=== PATIENT | female | born 1995 | race Caucasian/White ===

== ENCOUNTER 2025-02-28 09:43 | Emergency (ER) | payer OTHER, SELFPAY ==
[2025-02-28 09:44] VITALS: BP 156/100
[2025-02-28 10:09] LABS: HCG, Serum Qualitative Screen Negative
[2025-02-28 10:28] LABS: Alkaline Phosphatase 84 U/L (38-126); Blood Urea Nitrogen 8 mg/dl (7-17); Calcium 10.5 mg/dl (8.4-10.2); Carbon Dioxide 24 mmol/L (22-30); Chloride 105 mmol/L (98-107); Glucose 138 mg/dl (70-99); Potassium 3.5 mmol/L (3.5-5.1); Sodium 142 mmol/L (135-145); Total Protein 7.8 g/dl (6.3-8.2); eGFR > 60.00
[2025-02-28 10:29] LABS: ALT (SGPT) 18 U/L (0-35); AST (SGOT) 24 U/L (14-36); Albumin 4.7 g/dl (3.5-5.0); Lipase 28 U/L (23-300); Total Bilirubin 0.6 mg/dl (0.2-1.3)
--- NOTE | 2025-02-28 10:47 | ED.GENMED ---
History of Present Illness
General
Chief Complaint: Abdominal Pain
Source: patient
Exam Limitations: none
Time Seen by Provider: 02/28/25 10:33
History of Present Illness
History of Present Illness:
29-year-old female presents with sharp constant left upper quadrant abdominal pain that radiates to the back. She notes the pain is made worse with breathing. She denies shortness of breath or chest pain. There is no nausea or vomiting. She has
a history of IBS. Still at this she has been having loose stools. No fever. She drinks couple coffee a day and drinks alcohol socially. She denies any regular use of any NSAIDs. Denies any dark black tarry stools. No other complaints
Past History
Past History
ED Past Medical History: GERD (Gastritis/esophagitis) and Other (Chronic abdominal pain)
ED Past Surgical History: Orthopedic
Social History
Tobacco: Smoker
Alcohol: None
Personal: Single
Living: with family
Employment: Student
Family History
Family History: Other (Noncontributory)
Phy Exam
Physical Exam
Physical Exam:
General: Well-appearing female no acute respiratory distress
HEENT: Normocephalic atraumatic
Heart: Regular rate and rhythm
Lungs: Clear no wheeze
Abdomen is soft tender in the epigastric and left upper quadrants and mild to the left mid abdomen. No guarding rebound
Musculoskeletal exam: Left posterior chest wall slightly tender
Skin: warm, no rash
Course
Orders/Labs/Results
Orders:
Orders
02/28/25 09:48
Test Result ONCE
02/28/25 09:51
Complete Blood Count/With Diff Urgent
Comprehensive Metabolic Panel Urgent
HCG, Serum Qualitative Screen Urgent
Comment: Notify provider if positive test present
Lipase Urgent
02/28/25 10:40
Iohexol [Omnipaque] See Protocol PO NOW STA
02/28/25 10:41
CT Abd/pel W Iv And Oral Contr Urgent
Comment:
Reason For Exam: left sided abodminal pain
02/28/25 10:50
D-Dimer Urgent
Urinalysis Reflex To Culture Urgent
Date Specimen was Collected: 02/28/25
Time Specimen was Collected: 10:42
Urine Microscopic Reflex Cult Urgent
Urine Culture Urgent
CHANDU Source: U
Specimen Description:
Date Specimen was Collected: 02/28/25
Time Specimen was Collected: 10:42
Abnormal Lab Results
02/28/25 02/28/25
09:51 10:50
Plt Count 468 H 10^3/uL
(130-400)
Glucose 138 H mg/dl
(70-99)
Calcium 10.5 H mg/dl
(8.4-10.2)
Ur Occult Blood Reflex 2+ A
(Negative)
Leukocyte Esterase Rfl 2+ A
(Negative)
Urine Bacteria (Reflex) Moderate A
(Negative)
Urine Albumin (Reflex) 2+ A
(Neg - Trace)
02/28/25 09:51
02/28/25 09:51
Vital Signs
Initial and Last Documented VS:
Initial Vital Signs
Temp Pulse Resp BP Pulse Ox
98.0 F 120 16 156/100 100
02/28/25 09:44 02/28/25 09:44 02/28/25 09:44 02/28/25 09:44 02/28/25 09:44
Last Documented Vital Signs
Temp Pulse Resp BP Pulse Ox
97.6 F 86 20 136/71 99
02/28/25 12:22 02/28/25 12:22 02/28/25 12:22 02/28/25 12:22 02/28/25 12:22
MDM/Problems Addressed
Differential Diagnosis Includes:
Left abdominal pain pleuritic in nature. Consider gastritis versus pancreatitis versus PE versus renal colic versus constipation
Labs pending. D-dimer ordered. Order CT of abdomen with oral and IV contrast.
*Critical Care Note
Total Time (30-74mins, 75-104mins- exclusive of procedures): Not Applicable
Update Note
Update Note:
CT negative for acute finding labs reviewed without significant finding. D-dimer negative. Abdominal pain could be related to musculoskeletal pain versus gastritis. She will continue her PPI. Stable for discharge with GI follow-up
ED Attending Note
-
Portions of this chart may have been created with voice recognition software.� Occasional wrong word or��sound alike� substitutions may have occurred due to the inherent limitations of voice recognition software.
Discharge Plan
Departure
Patient Disposition: Home (Routine Discharge)
Date of Disposition: 02/28/25
Time of Disposition: 14:45
Patient with high blood pressure during this ER visit?: No
Discharge Problem:
Abdominal pain
Instructions: Abdominal Pain
Prescriptions:
No Action
No Current Medications
0
Referrals:
Coral Ba, [Active] -
Madhavi Chavis CRNP [Family Provider] -
Stand Alone Forms: Return to Work
Activity Restrictions/Additional Instructions:
Continue with your PPI. Use Tylenol for pain peer return if worse otherwise follow
Interventions
Interventions:
*Risk Screen - Suicide Last Done: 02/28/25 09:44
*General Assessment Last Done: 02/28/25 09:44
*Neglect/Abuse Screening Last Done: 02/28/25 12:22
*ED- Fall Risk Assessment Last Done: 02/28/25 12:22
*ED COVID-19 Vaccine History Last Done: 02/28/25 09:44
EI-Aeszch-Ufieqowoie Assessment Last Done: 02/28/25 12:22
Discharge Date and Time
Print Language: GAMBIAN
[2025-02-28 11:01] LABS: Urine Albumin 2+ (Neg - Trace); Urine Bilirubin Negative (Negative); Urine Character Clear (Clear); Urine Color Yellow; Urine Glucose Negative (Negative); Urine Ketone Negative (Negative); Urine Leukocyte 2+ (Negative); Urine Nitrite Negative (Negative); Urine Occult Blood 2+ (Negative); Urine Specific Gravity 1.025 (<1.030); Urine Urobilinogen 1+ (Neg - 1+)
[2025-02-28 11:06] LABS: % Basophils 0.6 % (0-2); % Eosinophils 3.4 % (0-6); % Immature Granulocytes 0.4 % (0-0.5); % Lymphocytes 31.3 % (20.5-51.1); % Monocytes 6.3 % (1.7-9.3); Absolute Eosinophils 0.2 10^3/uL (0-0.7); Absolute Lymphocytes 2.1 10^3/uL (1.2-3.4); Absolute Monocytes 0.4 10^3/uL (0.1-0.6); Absolute Neutrophils 3.9 10^3/uL (1.4-6.5); Hematocrit 44.2 % (37.0-47.0); Hemoglobin 15.2 g/dL (12.0-16.0); Mean Corp Hgb Conc. 34.4 g/dL (33.0-37.0); Mean Corpuscular Hgb 30.8 pg (27.0-31.0); Mean Corpuscular Volume 89.7 fL (81.0-99.0); Mean Platelet Volume 8.7 fL (7.4-10.4); Nucleated Red Blood Cells % 0 %; Platelet Count 468 10^3/uL (130-400); Red Blood Cell Count 4.93 10^6/uL (4.20-5.40); Red Cell Dist. Width 11.9 % (11.5-14.5); White Blood Cell Count 6.7 10^3/uL (4.8-10.8)
[2025-02-28] MEDS: OMNIPAQUE 50 ML PO (11:13)
[2025-02-28 11:26] LABS: D-Dimer < 0.27 ug/mlFEU (0.00-0.50)
[2025-02-28 11:30] LABS: Urine Bacteria Moderate (Negative); Urine Calcium Oxalate Crystals Seen; Urine Squamous Cell >30 /LPF (Few)
[2025-02-28 11:31] LABS: Urine Red Blood Cell 0-2 /HPF (0-2)
[2025-02-28 11:32] LABS: Urine Mucus Moderate
[2025-02-28 12:22] VITALS: BP 136/71; BMI 22.8
[2025-02-28 14:49] VITALS: BP 115/86
== END 2025-02-28 14:50 | disposition home or self-care (01) ==
LOC: EMR 09:43
PROVIDERS: Physician Assistant; EMERGENCY PHYSICIAN Student in an Organized Health Care Education/Training Program; FAMILY PHYSICIAN Nurse Practitioner
DX: R10.12 Left upper quadrant pain (principal); K58.0 Irritable bowel syndrome with diarrhea; K21.9 Gastro-esophageal reflux disease without esophagitis; F17.200 Nicotine dependence, unspecified, uncomplicated; Z87.19 Personal history of other diseases of the digestive system
CPT/HCPCS: 99284; 74177; 80053; 81003; 81015; 83690; 84703; 85025; 85379; 87086; Q9967